=== PATIENT | male | born 1995 | race Caucasian/White ===

== ENCOUNTER 2016-10-24 13:28 | Emergency (ER) | payer OTHER, SELFPAY | END 2016-10-24 15:55 | disposition home or self-care (01) | LOC: ER 13:28 | DX: G40.89 Other seizures (principal); F90.9 Attention-deficit hyperactivity disorder, unspecified type; F98.8 Other specified behavioral and emotional disorders with onset usually occurring in childhood and adolescence; Z91.013 Allergy to seafood | CPT/HCPCS: 36415; 80307 ==

== ENCOUNTER 2016-10-29 20:28 | Emergency (ER) | payer OTHER, SELFPAY | END 2016-10-29 22:40 | disposition home or self-care (01) | LOC: ER 20:28 | DX: F41.8 Other specified anxiety disorders (principal); F44.5 Conversion disorder with seizures or convulsions; F90.9 Attention-deficit hyperactivity disorder, unspecified type; Z91.013 Allergy to seafood | CPT/HCPCS: 36415; 80307 ==